=== PATIENT | male | born 1985 | race African-American/Black ===

== ENCOUNTER 2017-06-08 13:00 | Emergency (ER) | payer BC, OTHER ==
--- NOTE | 2017-06-08 15:48 | RAD ---
LEFT FOOT THREE VIEWS 06/08/17 INDICATION: Pain. FINDINGS: No fracture or dislocation. Lisfranc joint is maintained. There are enthesophytes of the calcaneus. M inimal osteoarthritis of the first ray are present. IMPRESSION: No acute osseous abnormality of the left foot. POS: MALIKA
[2017-06-08] MEDS ORDERED: Ketorolac Tromethamine 60 MG/2 ML VIAL ONE (16:12)
== END 2017-06-08 16:26 | disposition home or self-care (01) ==
LOC: ERS 13:00
DX: M72.2 Plantar fascial fibromatosis (principal); J45.909 Unspecified asthma, uncomplicated
CPT/HCPCS: J1885

== ENCOUNTER 2020-05-12 06:20 | Inpatient (IN) | payer OTHER, SELFPAY ==
[2020-05-12 07:19] LABS: #Basophils 0.1 thou/uL (0.0-0.2); #Eosinphils 0.3 thou/uL (0.0-0.7); #Monocytes 0.9 thou/uL (0.11-0.59); #Neutrophils 7.8 thou/uL (1.40-6.50); %Basophils 0.6 % (0.0-1.0); %Eosinophils 2.7 % (0.0-10.0); %Monocytes 7.8 % (0.0-10.0); Hemoglobin 13.5 g/dL (14.0-18.0); Mean Corpuscular HGB CONC 32.5 g/dL (32.0-36.0); Mean Corpuscular Volume 83.1 fL (78.0-98.0); Mean Platelet Volume 7.8 fL (7.4-10.4); Platelet Count 299 thou/uL (130-400); RBC Distribution Width 12.7 % (11.5-14.5); Red Blood Cell (RBC) Count 5.01 mill/uL (4.70-6.10)
--- NOTE | 2020-05-12 07:34 | RAD ---
Exam: Chest one view HISTORY:Dyspnea. Bilateral leg swelling Comparison: 03/04/2015 FINDINGS: Cardiac silhouette:Enlarged Aorta: Unremarkable Pulmonary vessels: Normal Costophrenic angles: Clear LUNGS: No masses or consolidation. Pneumothorax: None Osseous abnormalities: None IMPRESSION: No acute cardiopulmonary process.
[2020-05-12 07:51] LABS: ALT (SGPT) 29 U/L (8-55); AST (SGOT) 29 U/L (5-34); Albumin 3.9 g/dL (3.5-5.0); Alkaline Phosphatase 120 U/L (40-110); Anion Gap 11 mmol/L (10-20); BUN (Urea Nitrogen) 15 mg/dL (8.9-20.6); Bilirubin, Total 0.4 mg/dL (0.2-1.2); Calc. Creatinine Clearance 0 mL/min (70-130); Calcium 9.3 mg/dL (7.8-10.44); Carbon Dioxide 27 mmol/L (22-29); Chloride 105 mmol/L (98-107); Estimated GFR-MDRD Greater than 90; Globulin 3.6 g/dL (2.4-3.5); Glucose 93 mg/dL (70-105); Potassium 4.2 mmol/L (3.5-5.1); Protein, Total 7.5 g/dL (6.0-8.3); Sodium 139 mmol/L (136-145)
--- NOTE | 2020-05-12 08:16 | RAD ---
RADIOGRAPH LEFT LEG TIBIA-FIBULA 2VIEWS: DATE: 05/12/2020 HISTORY: 35-year-old male with left leg pain FINDINGS: There is no evidence of fracture, periostitis, permeative lesion, osteolytic lesion, or osteoblastic lesion. No radiopaque foreign body or subcutaneous emphysema is identified. There is diffuse subcutaneous edema. Mild DJD of knee. IMPRESSION: 1. Diffuse subcutaneous edema of the left leg. 2. No fracture of tibia or fibula
[2020-05-12] MEDS ORDERED: Morphine 4 MG/ML VIAL ONE (08:25)
[2020-05-12] MEDS ORDERED: Cefepime 2 GM VIAL ONE (08:25)
[2020-05-12] MEDS ORDERED: Vancomycin 1 GM/200 ML BAG ONE (08:25)
--- NOTE | 2020-05-12 09:17 | PDOC.HHP ---
Hospitalist HPI - History of Present Illness LE swelling History of Present Illness: PCP: Dr. 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 Patient reports gradual onset of swelling to his bilateral lower extremities over the past 2 weeks. He reports that he has had this before, however, it has not been "this bad". He reports over the last couple days that his left lower extremity below the knee has become more red, swollen and painful. The ER note reflected the patient had associated shortness of breath, however, I asked the patient about this statement and he said he did not have any shortness of breath. He reports that the pain is primarily to the front of his left lower extremity, below the knee, described as pressure, 7/10, and constant. 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 No history of DVT/PE. Denies SOB, cough, or wheezing. He denies any chest pain, heart palpitations, or light headedness. He has a history of asthma, that he says was due to VOG, which is common in [place] due to the v Swarms. He reports that since he has moved to the [facility] he has not had any symptoms or breathing difficulties. Denies fever or chills. He denies any known trauma or falls. Denies any puncture wounds. No history of IV drug use. He has not been in any salt water. Denies abdominal pain, nausea or vomiting. He also reports that he sees his PCP regularly, and is sure that he has no other comorbities such as diabetes, hypertension or high cholesterol.Tetanus is UTD. ED Course: VITAL SIGNS Rabia May 12, 2020 06:21 EDI Tellez, Corrie BP: 184/112, Pulse: 84, Resp: 20, Temp: 97.8 (Oral), Pain: 7, O2 sat: 95 on (Room Air), Time: 05/12/2020 06:21. VITAL SIGNS Rabia May 12, 2020 07:30 EDI Mary, Trisha BP: 114/96, MAP: 102, Pulse: 84, Resp: 20 (Non-Labored), Temp: 97.8 (Oral), Pain: 7, O2 sat: 96 on (Room Air), Time: 05/12/2020 07:30. Medication administration: vancomycin in dextrose 5 % one g IV Piggy Back Acknowledged 08:05/12/2020 cefepime injection 2 g IV Piggy Back Acknowledged 08:05/12/2020 morphine injection 4 mg IV Push Given 08:32 05/12/2020 sodium chloride 0.9 % intravenous 1 L IV Fluid Infusion Given 08:32 05/12/2020 Hospitalist ROS - Review of Systems Constitutional: denies: fever, chills Respiratory: denies: cough, shortness of breath, hemoptysis Cardiovascular: reports: edema. denies: chest pain, palpitations, light headedness Gastrointestinal: denies: nausea, vomiting, abdominal pain, diarrhea, constipation, melena, hematochezia Genitourinary: denies: dysuria, hematuria Skin: reports: rash Neurological: denies: weakness, change in speech, confusion All other systems reviewed; all pertinent +/- noted in HPI/Subj - Medication Medications: No home medications Allergies: NKDA Hospitalist History - Past Medical History Source: patient, RN notes reviewed Pulmonary: reports: asthma (Due to VOG when he lived in [place], no symptoms since moving to the [facility].) Other Medical History: Morbid obesity - Past Surgical History Past Surgical History: reports: Tonsillectomy - Family History Family History: denies: cardiac disorder Other Family History: Noncontributory for cardiac or PE/DVT - Social History Smoking Status: Never smoker Alcohol: reports: None Drugs: reports: none Living Situation: With Family Occupation: fire truck driver Activity level: independent ambulation - Exam General Appearance: NAD, awake alert. negative: ill appearing General - other findings: Morbid obesity Eye: anicteric sclera ENT: normocephalic atraumatic, moist mucosa Neck: supple, symmetric Heart: RRR, no murmur, no gallops, no rubs, normal peripheral pulses Respiratory: CTAB, no wheezes, no rales, no ronchi, normal chest expansion, no tachypnea Gastrointestinal: soft, non-tender, normal bowel sounds (Distant), no guarding, no rigidity Gastrointestinal - other findings: Negative Rovsing sign, negative Ken sign Extremities: negative: no edema (Left lower extremity swelling, erythema extending up to proximal tibia, no open lesions, warm to touch, TTP anterior tibia, nontender TP posteriorly, sensation intact, palpable posterior tibial pulse. ER MD Marked border of redness of extremity. Right lower extremity has swelling, no open lesions) Extremities - other findings: BLE Swelling Hospitalist Results - Labs Result Diagrams: 05/12/20 06:54 05/12/20 06:54 Lab results: WBC 11.0 thou/uL (4.8-10.8) H 05/12/20 06:54 Hgb 13.5 g/dL (14.0-18.0) L 05/12/20 06:54 Hct 41.7 % (42.0-52.0) L 05/12/20 06:54 MCV 83.1 fL (78.0-98.0) 05/12/20 06:54 Plt Count 299 thou/uL (130-400) 05/12/20 06:54 Neutrophils % 71.0 % (42.0-75.0) 05/12/20 06:54 ESR Westergren 24 mm/hr (Less than 15) H 05/12/20 08:39 Sodium 139 mmol/L (136-145) 05/12/20 06:54 Potassium 4.2 mmol/L (3.5-5.1) 05/12/20 06:54 Chloride 105 mmol/L (98-107) 05/12/20 06:54 Carbon Dioxide 27 mmol/L (22-29) 05/12/20 06:54 BUN 15 mg/dL (8.9-20.6) 05/12/20 06:54 Creatinine 1.03 mg/dL (0.7-1.3) 05/12/20 06:54 Glucose 93 mg/dL (70-105) 05/12/20 06:54 Calcium 9.3 mg/dL (7.8-10.44) 05/12/20 06:54 Total Bilirubin 0.4 mg/dL (0.2-1.2) 05/12/20 06:54 AST 29 U/L (5-34) 05/12/20 06:54 ALT 29 U/L (8-55) 05/12/20 06:54 Alkaline Phosphatase 120 U/L (40-110) H 05/12/20 06:54 Troponin I Less than 0.010 ng/mL (< 0.028) 05/12/20 06:54 B-Natriuretic Peptide 13.8 pg/mL (0-100) 05/12/20 06:54 Serum Total Protein 7.5 g/dL (6.0-8.3) 05/12/20 06:54 Albumin 3.9 g/dL (3.5-5.0) 05/12/20 06:54 - EKG Interpretation EKG: Normal sinus rhythm pulse 84 VA 154 no STEMI. - Radiology Interpretation Chest x-ray Status: report reviewed by me Additional Comment: IMPRESSION: No acute cardiopulmonary process. Other Status: report reviewed by me Additional Comment: RADIOGRAPH LEFT LEG TIBIA-FIBULA 2VIEWS: IMPRESSION: 1. Diffuse subcutaneous edema of the left leg. 2. 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 Admit to medical floor, inpatient status. Expected length of stay greater than 2 midnights. Presented hypertensive, NL HR, RR, SPO2, afebrile. EKG NSR. Troponin negative, BNP 13.8. CXR no acute process. WBC 11, LA 2.0, CRP 1.87, ESR 24 XR left leg no fracture, diffuse subcutaneous edema. Bilateral Venous ultrasound pending. Blood CX pending Tetanus is UTD per patient. #Cellulitis of left lower extremity LRINEC score 1, low risk Continue cefepime for now. Discontinue vancomycin, MRSA not suspected. Continue IV fluids x1 bag. Analgesia and antiemetics as needed. Repeat CRP and ESR q. 2 days. #Morbid obesity Chronic. Documented weight to 295 kg. Will check hemoglobin A1c. #History of asthma Resolved. Due to VOG from volcanoes when he lived in [place]. Lovenox for DVT prophylaxis. No GI prophylaxis. Full code. Discussed the case with Dr. Mead.
[2020-05-12] MEDS ORDERED: Ondansetron PF 4 MG/2 ML Vial IVP PRN (10:06)
[2020-05-12] MEDS ORDERED: HYDROcodone/Acetaminophen 5/325 mg Tablet PO PRN (10:06)
[2020-05-12] MEDS ORDERED: Senokot S 8.6-50 MG TAB PO PRN (10:06)
[2020-05-12] MEDS ORDERED: Ondansetron ODT 4 MG TAB PO PRN (10:06)
[2020-05-12] MEDS ORDERED: Sodium Chloride 0.9% 1,000 ML IV SCH (10:15)
[2020-05-12] MEDS ORDERED: Morphine 4 MG/ML VIAL SLOW IVP PRN (10:44)
--- NOTE | 2020-05-12 11:28 | ULT ---
EXAM: Bilateral lower extremity venous ultrasound HISTORY: Edema. COMPARISON: 09/06/2011 TECHNIQUE: Multiplanar grayscale and color Doppler images were obtained in a bilateral lower extremit y venous ultrasound. Spectral analysis of the Doppler waveforms were performed. FINDINGS: Limited evaluation due to body habitus The bilateral common femoral vein, profunda femoral veins, superficial femoral veins, and popliteal v eins are normal in appearance without visible thrombus. These vessels demonstrate normal compression, flow, and augmentation. The bilateral posterior tibial veins, profunda femoral veins and greater saphenous veins are patent w ithout evidence of DVT. IMPRESSION: No evidence of DVT in the left or right lower extremity.
[2020-05-12] MEDS: Acetaminophen 325 MG TAB PO PRN (15:53)
[2020-05-12 18:31] VITALS: BMI 81.1
[2020-05-12] MEDS: Enoxaparin Sodium 40 MG/0.4 ML SYRINGE SC SCH (21:04)
[2020-05-12] MEDS: HYDROcodone/Acetaminophen 5/325 mg Tablet PO PRN (21:04)
[2020-05-12] MEDS: Famotidine 20 MG TAB PO SCH (21:04)
[2020-05-12] MEDS: Cefepime 2 GM in Sodium Chloride 0.9% 100 ML IVPB SCH (21:05)
[2020-05-12 23:04] LABS: SARS-CoV-2 MS2 Positive; SARS-CoV-2 N Gene Negative; SARS-CoV-2 S Gene Negative; SARS-CoV-2 by NAA Not Detected (NotDetected); SARS-CoV-2 orf1ab Negative
[2020-05-13 03:52] LABS: Bacteria/HPF None Seen HPF (None Seen); Bilirubin Negative (Negative); Blood, Urine Negative (Negative); Clarity Clear (Clear); Glucose, Urine (Dipstick) Normal (Negative); Ketone, Urine Negative (Negative); Leukocyte Negative Leu/uL (Negative); Nitrite Negative (Negative); Protein, Urine (Dipstick) Negative (Neg-Trace); RBC/HPF 0-3 HPF (0-3); Specific Gravity, Urine 1.025 (1.002-1.036); Squamous Epithelial None Seen HPF (0-3); Urobilinogen Normal mg/dL (Less than 2); WBC/HPF 0-3 HPF (0-3); pH, Urine 5.5 (5.0-9.0)
[2020-05-13 05:25] LABS: #Eosinphils 0.3 thou/uL (0.0-0.7); #Lymphocytes 2.1 thou/uL (1.20-3.40); #Monocytes 0.9 thou/uL (0.11-0.59); #Neutrophils 5.8 thou/uL (1.40-6.50); %Basophils 0.5 % (0.0-1.0); %Eosinophils 3.1 % (0.0-10.0); %Lymphocytes 22.7 % (21.0-51.0); %Monocytes 9.9 % (0.0-10.0); %Neutrophils 63.8 % (42.0-75.0); Hemoglobin 13.2 g/dL (14.0-18.0); Mean Corpuscular HGB CONC 31.6 g/dL (32.0-36.0); Mean Corpuscular Hemoglobin 26.4 pg (27.0-31.0); Mean Corpuscular Volume 83.6 fL (78.0-98.0); Mean Platelet Volume 7.3 fL (7.4-10.4); Platelet Count 282 thou/uL (130-400); RBC Distribution Width 12.6 % (11.5-14.5); Red Blood Cell (RBC) Count 5.01 mill/uL (4.70-6.10)
[2020-05-13 05:30] LABS: Hemoglobin A1c 5.1 % (4.0-6.0)
[2020-05-13 05:41] LABS: Anion Gap 11 mmol/L (10-20); BUN (Urea Nitrogen) 14 mg/dL (8.9-20.6); Calc. Creatinine Clearance 498 mL/min (70-130); Calcium 9.1 mg/dL (7.8-10.44); Carbon Dioxide 27 mmol/L (22-29); Chloride 106 mmol/L (98-107); Estimated GFR-MDRD Greater than 90; Glucose 93 mg/dL (70-105); Potassium 4.5 mmol/L (3.5-5.1); Sodium 139 mmol/L (136-145)
--- NOTE | 2020-05-13 08:13 | PDOC.HOSPP ---
- Subjective Encounter Date: 05/13/20 Encounter Time: 08:02 Subjective: Patient seen and examined. No new complaints. No overnight events. Took shower last night and washed of black ink that marked border of erythema just below the knee of his LLE. Reports pain is improving to affected extremity. Denies any fever, chills, abdominal pain, N/V/D. Discussed risk factors for cellulitis. Patient had no more questions. - Objective Vital Signs & Weight: Vital Signs (12 hours) Temp Pulse Resp BP Pulse Ox 05/13/20 03:39 97 05/13/20 03:06 97.7 F 74 15 118/83 97 05/12/20 23:00 97.4 F L 84 16 102/61 96 Weight Weight 649 lb I&O: 05/12/20 05/13/20 05/14/20 06:59 06:59 06:59 Intake Total 1140 Balance 1140 Result Diagrams: 05/13/20 05:11 05/13/20 05:11 Hospitalist ROS - Review of Systems Constitutional: denies: fever, chills Respiratory: denies: cough, shortness of breath, hemoptysis Cardiovascular: denies: chest pain, palpitations, light headedness Gastrointestinal: denies: nausea, vomiting, abdominal pain, diarrhea Musculoskeletal: reports: leg pain (Left, pain improved, thinks redness is less) All other systems reviewed; all pertinent +/- noted in HPI/Subj - Medication Medications: Active Medications Generic Name Dose Route Start Last Admin Trade Name Freq PRN Reason Stop Dose Admin Acetaminophen 650 mg 05/12/20 10:06 05/12/20 15:53 Acetaminophen 325 Mg Tab PO 650 mg Q4H PRN Administration Headache/Fever/Mild Pain (1-3) Hydrocodone Bitart/Acetaminophen 2 tab 05/12/20 10:06 05/12/20 21:04 Hydrocodone/Acetaminophen 5/325 Mg Tablet PO 2 tab Q4H PRN Administration Severe Pain (7-10) Enoxaparin Sodium 40 mg 05/12/20 21:00 05/12/20 21:04 Enoxaparin Sodium 40 Mg/0.4 Ml Syringe SC 40 mg 0900,2100 CELESTE Administration Famotidine 20 mg 05/12/20 21:00 05/12/20 21:04 Famotidine 20 Mg Tab PO 20 mg BID CELESTE Administration Cefepime HCl 2 gm/ Sodium 100 mls @ 200 mls/hr 05/12/20 20:00 05/12/20 21:05 Chloride IVPB 100 mls 0800,1999 CELESTE Administration - Exam General Appearance: NAD, awake alert. negative: ill appearing General - other findings: morbid obese Eye: anicteric sclera Heart: RRR, no murmur, no gallops, no rubs Respiratory: CTAB, no wheezes, no rales, no ronchi, normal chest expansion, no tachypnea Gastrointestinal: soft, non-tender, normal bowel sounds, no guarding, no rigidity Extremities: negative: no edema (non pitting edema) Extremities - other findings: LLE erythema extend below knee, mod TTP throughout, doppler radial pulse Musculoskeletal: normal tone, normal strength Psychiatric: normal affect, A&O x 3 Hosp A/P (1) Cellulitis of left lower extremity Code(s): L03.116 - CELLULITIS OF LEFT LOWER LIMB Status: Acute (2) Morbid obesity Code(s): E66.01 - MORBID (SEVERE) OBESITY DUE TO EXCESS CALORIES Status: Chronic (3) History of asthma Code(s): Z87.09 - PERSONAL HISTORY OF OTHER DISEASES OF THE RESPIRATORY SYSTEM Status: Resolved - Plan 35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 Admit to medical floor, inpatient status. Expected length of stay greater than 2 midnights. Presented hypertensive, NL HR, RR, SPO2, afebrile. EKG NSR. Troponin negative, BNP 13.8. CXR no acute process. WBC 11, LA 2.0, CRP 1.87, ESR 24 XR left leg no fracture, diffuse subcutaneous edema. Bilateral Venous ultrasound negative. Blood CX pending Tetanus is UTD per patient. #Cellulitis of left lower extremity WBC down to 9.0 Stop cefepime, start ancef, no concern for pseudomonas. Tolerating po intake well. Analgesia and antiemetics prn. Check CRP/ESR q. 2 days. #Morbid obesity Chronic. Documented weight to 295 kg. HA1C 5.1 #History of asthma Resolved. Due to VOG from volcanoes when he lived in [place]. Lovenox for DVT prophylaxis. No GI prophylaxis. Full code. Discussed the case with Dr. Mead.
[2020-05-13] MEDS: Enoxaparin Sodium 40 MG/0.4 ML SYRINGE SC SCH ×2 (08:37→20:53)
[2020-05-13] MEDS: HYDROcodone/Acetaminophen 5/325 mg Tablet PO PRN (08:38)
[2020-05-13] MEDS: Famotidine 20 MG TAB PO SCH ×2 (08:38→20:53)
[2020-05-13] MEDS ORDERED: Enoxaparin Sodium 40 MG/0.4 ML SYRINGE SC SCH (09:00)
[2020-05-13] MEDS: Cefepime 2 GM in Sodium Chloride 0.9% 100 ML IVPB SCH (10:09)
[2020-05-13] MEDS ORDERED: CEFAZOLIN 1 GM in Sodium Chloride 0.9% 100 ML IVPB SCH (14:00)
[2020-05-13] MEDS: Acetaminophen 325 MG TAB PO PRN ×2 (14:26→20:55)
[2020-05-13] MEDS: ceFAZolin 1 GM/D5W 1 GM in Premix Bag 1 BAG IVPB SCH ×2 (16:52→20:53)
[2020-05-14] MEDS: Acetaminophen 325 MG TAB PO PRN ×3 (03:08→21:05)
[2020-05-14] MEDS: ceFAZolin 1 GM/D5W 1 GM in Premix Bag 1 BAG IVPB SCH ×3 (05:06→21:03)
[2020-05-14 06:36] LABS: #Basophils 0.1 thou/uL (0.0-0.2); #Eosinphils 0.3 thou/uL (0.0-0.7); #Lymphocytes 1.9 thou/uL (1.20-3.40); #Monocytes 0.7 thou/uL (0.11-0.59); #Neutrophils 6.7 thou/uL (1.40-6.50); %Basophils 0.8 % (0.0-1.0); %Eosinophils 3.2 % (0.0-10.0); %Lymphocytes 20.1 % (21.0-51.0); %Neutrophils 68.9 % (42.0-75.0); Hemoglobin 13.4 g/dL (14.0-18.0); Mean Corpuscular HGB CONC 32.6 g/dL (32.0-36.0); Mean Corpuscular Hemoglobin 27.7 pg (27.0-31.0); Mean Corpuscular Volume 84.9 fL (78.0-98.0); Mean Platelet Volume 7.9 fL (7.4-10.4); Platelet Count 299 thou/uL (130-400); RBC Distribution Width 12.5 % (11.5-14.5); Red Blood Cell (RBC) Count 4.86 mill/uL (4.70-6.10); White Blood Cell (WBC) Count 9.7 thou/uL (4.8-10.8)
[2020-05-14 06:44] LABS: Anion Gap 13 mmol/L (10-20); BUN (Urea Nitrogen) 13 mg/dL (8.9-20.6); Calc. Creatinine Clearance 492 mL/min (70-130); Calcium 9.1 mg/dL (7.8-10.44); Carbon Dioxide 25 mmol/L (22-29); Chloride 104 mmol/L (98-107); Estimated GFR-MDRD Greater than 90; Glucose 110 mg/dL (70-105); Potassium 4.3 mmol/L (3.5-5.1); Sodium 138 mmol/L (136-145)
--- NOTE | 2020-05-14 07:29 | PDOC.HOSPP ---
- Subjective Encounter Date: 05/14/20 Encounter Time: 08:31 Subjective: Patient seen and examined. No new complaints. No overnight events. Patient says he thinks redness is "going down" and pain is much improved. Denies fever or chills. Has no other complaints at this time. - Objective Vital Signs & Weight: Vital Signs (12 hours) Temp Pulse Resp BP Pulse Ox 05/14/20 04:00 97.7 F 78 18 126/83 97 05/14/20 00:00 96 05/13/20 23:42 98.7 F 75 18 143/56 H 96 05/13/20 20:00 98.5 F 83 16 148/82 H 97 Weight Weight 649 lb I&O: 05/13/20 05/14/20 05/15/20 06:59 06:59 06:59 Intake Total 1140 1270 Balance 1140 1270 Result Diagrams: 05/14/20 05:49 05/14/20 05:49 Hospitalist ROS - Review of Systems Constitutional: denies: fever, chills Respiratory: denies: cough, shortness of breath Cardiovascular: denies: chest pain, palpitations, light headedness Gastrointestinal: denies: nausea, vomiting, abdominal pain, diarrhea Skin: reports: rash (swelling and pain improved) All other systems reviewed; all pertinent +/- noted in HPI/Subj - Medication Medications: Active Medications Generic Name Dose Route Start Last Admin Trade Name Freq PRN Reason Stop Dose Admin Acetaminophen 650 mg 05/12/20 10:06 05/14/20 03:08 Acetaminophen 325 Mg Tab PO 650 mg Q4H PRN Administration Headache/Fever/Mild Pain (1-3) Hydrocodone Bitart/Acetaminophen 2 tab 05/12/20 10:06 05/13/20 08:38 Hydrocodone/Acetaminophen 5/325 Mg Tablet PO 2 tab Q4H PRN Administration Severe Pain (7-10) Enoxaparin Sodium 40 mg 05/12/20 21:00 05/13/20 20:53 Enoxaparin Sodium 40 Mg/0.4 Ml Syringe SC 40 mg 0900,2100 CELESTE Administration Famotidine 20 mg 05/12/20 21:00 05/13/20 20:53 Famotidine 20 Mg Tab PO 20 mg BID CELESTE Administration Cefazolin Sodium/Dextrose 1 gm 50 mls @ 100 mls/hr 05/13/20 14:00 05/14/20 05:06 / Device IVPB 50 mls Q8HR CELESTE Administration - Exam General Appearance: NAD, awake alert. negative: ill appearing Eye: anicteric sclera ENT: normocephalic atraumatic Neck: supple, symmetric Heart: RRR, no murmur, no gallops, no rubs Respiratory: CTAB, no wheezes, no rales, no ronchi Gastrointestinal: soft, non-tender, normal bowel sounds, no guarding, no rigidity Extremities - other findings: LLE erythema mid waterman, non pitting edema improving, mild TTP, palp PT pulse Neurological: no focal deficits Psychiatric: normal affect, A&O x 3 Hosp A/P (1) Cellulitis of left lower extremity Code(s): L03.116 - CELLULITIS OF LEFT LOWER LIMB Status: Acute (2) Morbid obesity Code(s): E66.01 - MORBID (SEVERE) OBESITY DUE TO EXCESS CALORIES Status: Chronic (3) History of asthma Code(s): Z87.09 - PERSONAL HISTORY OF OTHER DISEASES OF THE RESPIRATORY SYSTEM Status: Resolved - Plan 35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 Admit to medical floor, inpatient status. Expected length of stay greater than 2 midnights. Presented hypertensive, NL HR, RR, SPO2, afebrile. EKG NSR. Troponin negative, BNP 13.8. CXR no acute process. WBC 11, LA 2.0, CRP 1.87, ESR 24 XR left leg no fracture, diffuse subcutaneous edema. Bilateral Venous ultrasound negative. Blood CX pending Tetanus is UTD per patient. #Cellulitis of left lower extremity WBC WNL Continue Ancef Analgesia and antiemetics prn. Check CRP/ESR q. 2 days. #Morbid obesity Chronic. Documented weight to 295 kg. HA1C 5.1 #History of asthma Resolved. Due to VOG from volcanoes when he lived in [place]. Lovenox for DVT prophylaxis. No GI prophylaxis. Full code. Discussed the case with Dr. Mead.
[2020-05-14] MEDS: Famotidine 20 MG TAB PO SCH ×2 (09:15→21:03)
[2020-05-14] MEDS: Enoxaparin Sodium 40 MG/0.4 ML SYRINGE SC SCH ×2 (09:40→21:03)
[2020-05-15 05:44] LABS: #Eosinphils 0.3 thou/uL (0.0-0.7); #Lymphocytes 2.4 thou/uL (1.20-3.40); #Monocytes 0.8 thou/uL (0.11-0.59); #Neutrophils 6.3 thou/uL (1.40-6.50); %Basophils 0.1 % (0.0-1.0); %Eosinophils 3.4 % (0.0-10.0); %Monocytes 8.1 % (0.0-10.0); %Neutrophils 64.5 % (42.0-75.0); Hemoglobin 13.3 g/dL (14.0-18.0); Mean Corpuscular HGB CONC 31.6 g/dL (32.0-36.0); Mean Corpuscular Hemoglobin 26.5 pg (27.0-31.0); Mean Corpuscular Volume 83.8 fL (78.0-98.0); Mean Platelet Volume 7.3 fL (7.4-10.4); Platelet Count 307 thou/uL (130-400); RBC Distribution Width 12.6 % (11.5-14.5); Red Blood Cell (RBC) Count 5.01 mill/uL (4.70-6.10); White Blood Cell (WBC) Count 9.8 thou/uL (4.8-10.8)
[2020-05-15 06:12] LABS: Anion Gap 12 mmol/L (10-20); BUN (Urea Nitrogen) 13 mg/dL (8.9-20.6); Calc. Creatinine Clearance 476 mL/min (70-130); Calcium 9.1 mg/dL (7.8-10.44); Carbon Dioxide 26 mmol/L (22-29); Chloride 105 mmol/L (98-107); Estimated GFR-MDRD Greater than 90; Glucose 93 mg/dL (70-105); Potassium 4.4 mmol/L (3.5-5.1); Sodium 139 mmol/L (136-145)
[2020-05-15] MEDS: ceFAZolin 1 GM/D5W 1 GM in Premix Bag 1 BAG IVPB SCH ×3 (06:47→21:03)
[2020-05-15] MEDS: Acetaminophen 325 MG TAB PO PRN ×2 (08:31→21:04)
[2020-05-15] MEDS: Famotidine 20 MG TAB PO SCH ×2 (08:32→21:03)
[2020-05-15] MEDS: Enoxaparin Sodium 40 MG/0.4 ML SYRINGE SC SCH ×2 (08:32→21:03)
--- NOTE | 2020-05-15 13:27 | PDOC.HOSPP ---
- Subjective Encounter Date: 05/15/20 Encounter Time: 11:30 Subjective: leg pain and swelling has come down well per patient he is able to ambulate well on the floor now - Objective Vital Signs & Weight: Vital Signs (12 hours) Temp Pulse Resp BP Pulse Ox 05/15/20 11:15 97.9 F 92 18 132/83 98 05/15/20 07:22 97.8 F 76 18 127/84 98 Weight Weight 649 lb I&O: 05/14/20 05/15/20 05/16/20 06:59 06:59 06:59 Intake Total 1270 1190 Balance 1270 1190 Result Diagrams: 05/15/20 05:25 05/15/20 05:25 Hospitalist ROS - Medication Medications: Active Medications Generic Name Dose Route Start Last Admin Trade Name Freq PRN Reason Stop Dose Admin Acetaminophen 650 mg 05/12/20 10:06 05/15/20 08:31 Acetaminophen 325 Mg Tab PO 650 mg Q4H PRN Administration Headache/Fever/Mild Pain (1-3) Hydrocodone Bitart/Acetaminophen 2 tab 05/12/20 10:06 05/13/20 08:38 Hydrocodone/Acetaminophen 5/325 Mg Tablet PO 2 tab Q4H PRN Administration Severe Pain (7-10) Enoxaparin Sodium 40 mg 05/12/20 21:00 05/15/20 08:32 Enoxaparin Sodium 40 Mg/0.4 Ml Syringe SC 40 mg 0900,2100 CELESTE Administration Famotidine 20 mg 05/12/20 21:00 05/15/20 08:32 Famotidine 20 Mg Tab PO 20 mg BID CELESTE Administration Cefazolin Sodium/Dextrose 1 gm 50 mls @ 100 mls/hr 05/13/20 14:00 05/15/20 06:47 / Device IVPB 50 mls Q8HR CELESTE Administration - Exam General Appearance: awake alert Eye: PERRL, anicteric sclera ENT: no oropharyngeal lesions, moist mucosa Neck: supple, no JVD Heart: RRR, no murmur Respiratory: no wheezes, no rales Gastrointestinal: soft, non-tender, non-distended, normal bowel sounds Extremities: no cyanosis, no edema Neurological: cranial nerve grossly intact, no focal deficits Psychiatric: normal affect, A&O x 3 Hosp A/P (1) Cellulitis of left lower extremity Code(s): L03.116 - CELLULITIS OF LEFT LOWER LIMB Status: Acute (2) Morbid obesity Code(s): E66.01 - MORBID (SEVERE) OBESITY DUE TO EXCESS CALORIES Status: Chronic (3) History of asthma Code(s): Z87.09 - PERSONAL HISTORY OF OTHER DISEASES OF THE RESPIRATORY SYSTEM Status: Chronic - Plan is on ancef and has responded well plan is to switch him to keflex in am and dc home if he remains stable to ambulate as tolerated has life threatening obesity weighing nearly 649 lbs, needs to do drastic life style changes, ?bariatric surgery if he wishes.
[2020-05-16] MEDS: ceFAZolin 1 GM/D5W 1 GM in Premix Bag 1 BAG IVPB SCH ×2 (06:32→13:55)
[2020-05-16 08:57] LABS: #Basophils 0.1 thou/uL (0.0-0.2); #Eosinphils 0.3 thou/uL (0.0-0.7); #Lymphocytes 1.9 thou/uL (1.20-3.40); #Monocytes 0.7 thou/uL (0.11-0.59); #Neutrophils 6.9 thou/uL (1.40-6.50); %Basophils 0.7 % (0.0-1.0); %Eosinophils 2.6 % (0.0-10.0); %Monocytes 6.8 % (0.0-10.0); Hemoglobin 14.4 g/dL (14.0-18.0); Mean Corpuscular HGB CONC 32.5 g/dL (32.0-36.0); Mean Corpuscular Hemoglobin 27.2 pg (27.0-31.0); Mean Corpuscular Volume 83.8 fL (78.0-98.0); Mean Platelet Volume 7.8 fL (7.4-10.4); Platelet Count 319 thou/uL (130-400); RBC Distribution Width 12.8 % (11.5-14.5); Red Blood Cell (RBC) Count 5.29 mill/uL (4.70-6.10); White Blood Cell (WBC) Count 9.7 thou/uL (4.8-10.8)
[2020-05-16] MEDS: Famotidine 20 MG TAB PO SCH (09:08)
[2020-05-16] MEDS: Acetaminophen 325 MG TAB PO PRN (09:08)
[2020-05-16] MEDS: Enoxaparin Sodium 40 MG/0.4 ML SYRINGE SC SCH (09:10)
[2020-05-16 09:11] LABS: Anion Gap 14 mmol/L (10-20); BUN (Urea Nitrogen) 11 mg/dL (8.9-20.6); Calc. Creatinine Clearance 487 mL/min (70-130); Calcium 9.6 mg/dL (7.8-10.44); Carbon Dioxide 27 mmol/L (22-29); Chloride 104 mmol/L (98-107); Estimated GFR-MDRD Greater than 90; Glucose 96 mg/dL (70-105); Potassium 4.6 mmol/L (3.5-5.1); Sodium 140 mmol/L (136-145)
[2020-05-16 12:22] VITALS: BP 139/93; TEMP 98
--- NOTE | 2020-05-16 16:31 | DIS ---
DATE OF ADMISSION: 05/12/2020 DATE OF DISCHARGE: 05/16/2020 DISCHARGE DISPOSITION: Home. PRIMARY DISCHARGE DIAGNOSES: Left lower extremity cellulitis, morbid obesity, history of asthma. PROCEDURES DONE DURING HOSPITALIZATION: Left leg tibia fibula two view x-ray done showed diffuse subcutaneous edema of the left leg. No fracture of tibia or fibula. Bilateral lower extremity ultrasound done showed no DVT. Chest x-ray done showed no acute cardiopulmonary process. Blood cultures x2, no growth. White count of 9, H and H 14 and 44, platelet count 319. Sedimentation rate was 35. BUN 11, creatinine 0.9. CRP 1.87. COVID-19 PCR was not detected on 05/12/2020. DISCHARGE MEDICATIONS: 1. Keflex 500 mg p.o. q.6 hourly for a total of 10 days. 2. Omeprazole 20 mg p.o. daily for 15 days. ALLERGIES: NO KNOWN DRUG ALLERGIES. DISCHARGE PLAN: The patient to follow up with Dr. Herman Fleming, his primary care physician in 3 to 4 days. BRIEF COURSE DURING HOSPITALIZATION: The patient initially came to ER with complaints of left lower extremity swelling with pain. There was also erythema on clinical exam. He has had ultrasound venous Doppler done which did not reveal any DVT. He was placed on IV antibiotics and has responded well. He has been switched over to Keflex for a total duration of 10 days. He has been ambulating and eating well prior to discharge. The patient has a BMI of nearly 81 and weighing nearly 649 pounds. He has life-threatening obesity and has been counseled with regard to healthy eating and lifestyle choices with exercise as well. The patient also was counseled regarding bariatric surgery Please note, I have seen and examined the patient on the day of discharge. Job ID: [id number]
== END 2020-05-16 13:57 | disposition home or self-care (01) | DRG 603 ==
LOC: ERS 06:20 → ERHOLD 09:30 → SJJU 15:26
PROVIDERS: ADMIT Student in an Organized Health Care Education/Training Program; ATTEND Internal Medicine
DX: L03.116 Cellulitis of left lower limb (principal); Z68.45 Body mass index [BMI] 70 or greater, adult; E66.01 Morbid (severe) obesity due to excess calories; J45.909 Unspecified asthma, uncomplicated; Z20.828 Contact with and (suspected) exposure to other viral communicable diseases
CPT/HCPCS: 36415; 71045; 80048; 80053; 81001; 82550; 83036; 83605; 83880; 84484; 85025; 85652; 86140; 87040; 87635; 93005; 93970; 96365; 96367; 96375; J0690; J0692; J1650; J2270; J3370; J3490; U0003

== ENCOUNTER 2021-04-10 15:36 | Emergency (ER) | payer SELFPAY ==
[2021-04-10 16:13] LABS: Hemoglobin 13.3 g/dL (14.0-18.0); Mean Corpuscular HGB CONC 33.4 g/dL (32.0-36.0); Mean Corpuscular Hemoglobin 27.5 pg (27.0-31.0); Mean Corpuscular Volume 82.3 fL (78.0-98.0); Mean Platelet Volume 8.2 fL (7.4-10.4); Platelet Count 272 thou/uL (130-400); RBC Distribution Width 13.3 % (11.5-14.5); Red Blood Cell (RBC) Count 4.82 mill/uL (4.70-6.10); White Blood Cell (WBC) Count 16.5 thou/uL (4.8-10.8)
[2021-04-10 16:34] LABS: Band 18 % (5-11); Lymphocytes 8 % (21-51); MDiff Complete? YES; Monocytes 5 % (0-10); Neutrophil 67 % (42-75); Platelet Morphology Comment Appears Adequate; RBC Morphology Normal; Reactive Lymphocytes 2 % (0-10)
[2021-04-10 16:52] LABS: ALT (SGPT) 23 U/L (8-55); AST (SGOT) 30 U/L (5-34); Albumin 3.8 g/dL (3.5-5.0); Alkaline Phosphatase 93 U/L (40-110); Anion Gap 14 mmol/L (10-20); BUN (Urea Nitrogen) 12 mg/dL (8.9-20.6); Bilirubin, Total 0.8 mg/dL (0.2-1.2); Calc. Creatinine Clearance 0 mL/min (70-130); Calcium 9.4 mg/dL (7.8-10.44); Carbon Dioxide 22 mmol/L (22-29); Chloride 105 mmol/L (98-107); Globulin 3.7 g/dL (2.4-3.5); Glucose 102 mg/dL (70-105); Potassium 4.4 mmol/L (3.5-5.1); Protein, Total 7.5 g/dL (6.0-8.3); Sodium 137 mmol/L (136-145)
[2021-04-10 18:27] LABS: Bilirubin Negative (Negative); Blood, Urine Negative (Negative); Clarity Clear (Clear); Glucose, Urine (Dipstick) Normal (Negative); Ketone, Urine Negative (Negative); Leukocyte Negative Leu/uL (Negative); Nitrite Negative (Negative); Protein, Urine (Dipstick) Negative (Neg-Trace); Specific Gravity, Urine 1.008 (1.002-1.036); pH, Urine 6.5 (5.0-9.0)
[2021-04-10 18:59] LABS: Troponin I 0.017 ng/mL (< 0.028)
[2021-04-10 19:11] LABS: CK (CPK) 383 U/L (30-200); Lipase 7 U/L (8-78)
== END 2021-04-10 20:00 | disposition home or self-care (01) ==
LOC: ERS 15:36
DX: T78.1XXA Other adverse food reactions, not elsewhere classified, initial encounter (principal); D72.829 Elevated white blood cell count, unspecified
CPT/HCPCS: 36415; 80053; 81003; 82550; 83605; 83690; 83880; 84484; 85025; 85379; 87040; 93005

== ENCOUNTER 2021-06-26 17:59 | Inpatient (IN) | payer OTHER, SELFPAY ==
[2021-06-26 18:31] LABS: #Eosinphils 0.1 thou/uL (0.0-0.7); #Lymphocytes 1.1 thou/uL (1.20-3.40); #Monocytes 0.9 thou/uL (0.11-0.59); #Neutrophils 14.8 thou/uL (1.40-6.50); %Basophils 0.2 % (0.0-1.0); %Eosinophils 0.3 % (0.0-10.0); %Lymphocytes 6.5 % (21.0-51.0); %Monocytes 5.1 % (0.0-10.0); %Neutrophils 87.9 % (42.0-75.0); Hemoglobin 14.6 g/dL (14.0-18.0); Mean Corpuscular HGB CONC 34.2 g/dL (32.0-36.0); Mean Corpuscular Hemoglobin 27.5 pg (27.0-31.0); Mean Corpuscular Volume 80.5 fL (78.0-98.0); Mean Platelet Volume 7.4 fL (7.4-10.4); Platelet Count 266 thou/uL (130-400); RBC Distribution Width 13.1 % (11.5-14.5); Red Blood Cell (RBC) Count 5.31 mill/uL (4.70-6.10); White Blood Cell (WBC) Count 16.8 thou/uL (4.8-10.8)
[2021-06-26 18:43] LABS: PTT 29.8 sec (22.9-36.1); Prothrombin Time 13.3 sec (12.0-14.7)
[2021-06-26 18:54] LABS: ALT (SGPT) 21 U/L (8-55); AST (SGOT) 23 U/L (5-34); Alkaline Phosphatase 99 U/L (40-110); Anion Gap 12 mmol/L (10-20); BUN (Urea Nitrogen) 12 mg/dL (8.9-20.6); Bilirubin, Total 0.9 mg/dL (0.2-1.2); Calc. Creatinine Clearance 0 mL/min (70-130); Calcium 9.7 mg/dL (7.8-10.44); Carbon Dioxide 23 mmol/L (22-29); Chloride 107 mmol/L (98-107); Globulin 3.8 g/dL (2.4-3.5); Glucose 107 mg/dL (70-105); Potassium 3.7 mmol/L (3.5-5.1); Protein, Total 7.8 g/dL (6.0-8.3); Sodium 138 mmol/L (136-145)
[2021-06-26 20:08] LABS: SARS-CoV-2 NAA Rapid Test DETECTED (NotDetected)
[2021-06-26] MEDS ORDERED: Cefepime 2 GM VIAL ONE (21:07)
[2021-06-26] MEDS ORDERED: Vancomycin 1 GM/200 ML BAG ONE (21:07)
[2021-06-26 21:54] LABS: Bilirubin Negative (Negative); Blood, Urine Negative (Negative); Clarity Clear (Clear); Glucose, Urine (Dipstick) Normal (Negative); Ketone, Urine Negative (Negative); Leukocyte Negative Leu/uL (Negative); Nitrite Negative (Negative); Protein, Urine (Dipstick) 20 mg/dL (Neg-Trace); Specific Gravity, Urine 1.018 (1.002-1.036); Urobilinogen Normal mg/dL (Less than 2); pH, Urine 6.5 (5.0-9.0)
[2021-06-26] MEDS ORDERED: Enoxaparin Sodium 100 MG/ML SYRINGE ONE (22:04)
[2021-06-26] MEDS ORDERED: Enoxaparin Sodium 80 MG/0.8 ML SYRINGE ONE (22:04)
[2021-06-26 23:08] VITALS: BMI 78.6
[2021-06-27] MEDS ORDERED: Sodium Chloride 0.9% 1,000 ML IV SCH (03:45)
[2021-06-27] MEDS ORDERED: Ondansetron ODT 4 MG TAB SL PRN (03:45)
[2021-06-27] MEDS ORDERED: Ondansetron PF 4 MG/2 ML Vial IVP PRN ×2 (03:45→06:28)
[2021-06-27] MEDS ORDERED: Acetaminophen 325 MG TAB PO PRN ×2 (03:45→06:28)
[2021-06-27] MEDS: VANCOMYCIN 2 GRAM/400 ML BAG 2 GM in Premix Bag 1 BAG IVPB SCH ×3 (03:53→20:59)
[2021-06-27] MEDS ORDERED: Cefepime 2 GM in Sodium Chloride 0.9% 100 ML IVPB SCH (06:00)
[2021-06-27 06:53] LABS: #Lymphocytes 1.7 thou/uL (1.20-3.40); #Monocytes 1.1 thou/uL (0.11-0.59); %Basophils 0.1 % (0.0-1.0); %Eosinophils 0.2 % (0.0-10.0); %Lymphocytes 10.1 % (21.0-51.0); %Monocytes 6.6 % (0.0-10.0); Mean Corpuscular Hemoglobin 26.6 pg (27.0-31.0); Mean Corpuscular Volume 82.9 fL (78.0-98.0); Mean Platelet Volume 7.7 fL (7.4-10.4); Platelet Count 245 thou/uL (130-400); RBC Distribution Width 13.4 % (11.5-14.5); Red Blood Cell (RBC) Count 4.91 mill/uL (4.70-6.10); White Blood Cell (WBC) Count 16.8 thou/uL (4.8-10.8)
[2021-06-27 07:12] LABS: Anion Gap 10 mmol/L (10-20); BUN (Urea Nitrogen) 12 mg/dL (8.9-20.6); Calc. Creatinine Clearance 429 mL/min (70-130); Carbon Dioxide 23 mmol/L (22-29); Chloride 108 mmol/L (98-107); Glucose 109 mg/dL (70-105); Potassium 3.6 mmol/L (3.5-5.1); Sodium 137 mmol/L (136-145)
[2021-06-27] MEDS: Enoxaparin Sodium 40 MG/0.4 ML SYRINGE SC SCH (08:16)
[2021-06-28 03:50] LABS: #Basophils 0.1 thou/uL (0.0-0.2); #Eosinphils 0.2 thou/uL (0.0-0.7); #Lymphocytes 1.7 thou/uL (1.20-3.40); #Monocytes 1.1 thou/uL (0.11-0.59); #Neutrophils 9.8 thou/uL (1.40-6.50); %Basophils 0.5 % (0.0-1.0); %Eosinophils 1.5 % (0.0-10.0); %Lymphocytes 13.2 % (21.0-51.0); %Monocytes 8.6 % (0.0-10.0); %Neutrophils 76.3 % (42.0-75.0); Hemoglobin 12.9 g/dL (14.0-18.0); Mean Corpuscular HGB CONC 33.2 g/dL (32.0-36.0); Mean Corpuscular Hemoglobin 27.3 pg (27.0-31.0); Mean Corpuscular Volume 82.3 fL (78.0-98.0); Mean Platelet Volume 7.6 fL (7.4-10.4); Platelet Count 233 thou/uL (130-400); RBC Distribution Width 13.3 % (11.5-14.5); Red Blood Cell (RBC) Count 4.72 mill/uL (4.70-6.10); White Blood Cell (WBC) Count 12.8 thou/uL (4.8-10.8)
[2021-06-28 04:15] LABS: Anion Gap 11 mmol/L (10-20); BUN (Urea Nitrogen) 10 mg/dL (8.9-20.6); Calc. Creatinine Clearance 443 mL/min (70-130); Calcium 9.3 mg/dL (7.8-10.44); Carbon Dioxide 22 mmol/L (22-29); Chloride 110 mmol/L (98-107); Glucose 108 mg/dL (70-105); Potassium 3.7 mmol/L (3.5-5.1); Sodium 139 mmol/L (136-145); Vancomycin, Trough 17.9 ug/mL
[2021-06-28] MEDS: VANCOMYCIN 2 GRAM/400 ML BAG 2 GM in Premix Bag 1 BAG IVPB SCH ×3 (04:34→19:43)
[2021-06-28] MEDS: Enoxaparin Sodium 40 MG/0.4 ML SYRINGE SC SCH (09:38)
[2021-06-28] MEDS ORDERED: cefTRIAXone\\ROCEPHIN 2 GM in Sodium Chloride 0.9% 100 ML IVPB SCH (14:00)
[2021-06-29 05:11] LABS: #Basophils 0.1 thou/uL (0.0-0.2); #Eosinphils 0.4 thou/uL (0.0-0.7); #Lymphocytes 1.6 thou/uL (1.20-3.40); #Neutrophils 9.4 thou/uL (1.40-6.50); %Basophils 0.4 % (0.0-1.0); %Eosinophils 3.4 % (0.0-10.0); %Lymphocytes 13.1 % (21.0-51.0); %Monocytes 7.8 % (0.0-10.0); %Neutrophils 75.3 % (42.0-75.0); Hemoglobin 13.7 g/dL (14.0-18.0); Mean Corpuscular HGB CONC 32.8 g/dL (32.0-36.0); Mean Corpuscular Hemoglobin 27.2 pg (27.0-31.0); Mean Corpuscular Volume 82.7 fL (78.0-98.0); Mean Platelet Volume 7.9 fL (7.4-10.4); Platelet Count 263 thou/uL (130-400); RBC Distribution Width 13.1 % (11.5-14.5); Red Blood Cell (RBC) Count 5.05 mill/uL (4.70-6.10); White Blood Cell (WBC) Count 12.5 thou/uL (4.8-10.8)
[2021-06-29 05:31] LABS: Anion Gap 14 mmol/L (10-20); BUN (Urea Nitrogen) 9 mg/dL (8.9-20.6); Calc. Creatinine Clearance 490 mL/min (70-130); Calcium 9.6 mg/dL (7.8-10.44); Carbon Dioxide 21 mmol/L (22-29); Chloride 107 mmol/L (98-107); Glucose 97 mg/dL (70-105); Sodium 138 mmol/L (136-145)
[2021-06-29] MEDS: VANCOMYCIN 2 GRAM/400 ML BAG 2 GM in Premix Bag 1 BAG IVPB SCH (05:33)
[2021-06-29] MEDS ORDERED: Ondansetron ODT 4 MG TAB PO PRN (06:15)
[2021-06-29] MEDS ORDERED: Benzonatate 100 MG CAP PO PRN (06:15)
[2021-06-29] MEDS ORDERED: Loperamide HCl 2 MG CAP PO PRN (06:15)
[2021-06-29] MEDS ORDERED: Sodium Chloride 0.65% Nasal 44 ML BOT EA NARE PRN (06:15)
[2021-06-29] MEDS ORDERED: Loratadine 10 MG TAB PO PRN (06:15)
[2021-06-29] MEDS ORDERED: HYDROcodone/Acetaminophen 5/325 mg Tablet PO PRN (06:15)
[2021-06-29] MEDS ORDERED: Calcium Carbonate 500 MG ChewTAB PO PRN (06:15)
[2021-06-29] MEDS ORDERED: Senokot S 8.6-50 MG TAB PO PRN (06:15)
[2021-06-29] MEDS ORDERED: hydrALAZINE 20 MG/ML VIAL SLOW IVP PRN (06:15)
[2021-06-29] MEDS ORDERED: Zolpidem Tartrate 5 MG TAB PO PRN (06:15)
[2021-06-29] MEDS ORDERED: Cepastat Lozenges 1 LOZ PO PRN (06:15)
[2021-06-29] MEDS ORDERED: GUAIFENESIN SF SOLN 200 MG/10 ML UDCUP PO PRN (06:15)
[2021-06-29] MEDS: Enoxaparin Sodium 40 MG/0.4 ML SYRINGE SC SCH (08:21)
[2021-06-29 08:38] VITALS: BP 136/91; TEMP 97.7
[2021-06-29] MEDS ORDERED: Cholecalciferol 1,000 UNITS (25 MCG) TAB PO SCH (09:00)
[2021-06-29] MEDS ORDERED: Zinc Sulfate 220 MG CAP PO SCH (09:00)
[2021-06-29] MEDS ORDERED: Ascorbic Acid 500 mg Chewable Tablet PO SCH (09:00)
[2021-06-29] MEDS ORDERED: VANCOMYCIN 2 GRAM/400 ML BAG 2 GM in Premix Bag 1 BAG IVPB SCH (17:00)
== END 2021-06-29 12:18 | disposition home or self-care (01) | DRG 871 ==
LOC: ERS 17:59 → T4-A 21:02
PROVIDERS: ADMIT Internal Medicine; ATTEND Internal Medicine
PROC: 8E0ZXY6 Isolation (ICD-10-PCS; principal; 2021-06-26)
DX: A41.9 Sepsis, unspecified organism (principal); U07.1 COVID-19; Z68.45 Body mass index [BMI] 70 or greater, adult; L03.116 Cellulitis of left lower limb; E66.01 Morbid (severe) obesity due to excess calories; J45.909 Unspecified asthma, uncomplicated; Z90.89 Acquired absence of other organs
CPT/HCPCS: 0240U; 36415; 71045; 80048; 80053; 80202; 81003; 83605; 85025; 85610; 85652; 85730; 86140; 87040; 87086; 93005; 96365; 96368; J0692; J0696; J1650; J3370; J3490; J7050

== ENCOUNTER 2022-03-25 01:46 | Emergency (ER) | payer OTHER ==
[2022-03-25] MEDS ORDERED: Ketorolac Tromethamine 30 MG/ML VIAL ONE (03:44)
== END 2022-03-25 04:36 | disposition home or self-care (01) ==
LOC: ERS 01:46
DX: S93.602A Unspecified sprain of left foot, initial encounter (principal); M54.50 Low back pain, unspecified; E66.9 Obesity, unspecified; W17.89XA Other fall from one level to another, initial encounter; Z68.45 Body mass index [BMI] 70 or greater, adult
CPT/HCPCS: 72100; 96372; J1885

== ENCOUNTER 2022-10-27 23:44 | Emergency (ER) | payer BC, SELFPAY ==
[2022-10-28] MEDS ORDERED: Proparacaine 0.5% Opth 15 ML BOT ONE (00:45)
[2022-10-28] MEDS ORDERED: Fluorescein Opthalmic Strip ONE (00:46)
== END 2022-10-28 01:36 | disposition home or self-care (01) ==
LOC: ERS 23:44
DX: S05.02XA Injury of conjunctiva and corneal abrasion without foreign body, left eye, initial encounter (principal); E66.9 Obesity, unspecified; W26.9XXA Contact with unspecified sharp object(s), initial encounter
CPT/HCPCS: 99283

== ENCOUNTER 2023-04-11 15:45 | Observation (INO) | payer BC ==
[2023-04-11 17:23] LABS: #Eosinphils 0.3 thou/uL (0.0-0.7); #Neutrophils 8.7 thou/uL (1.40-6.50); %Basophils 0.3 % (0.0-1.0); %Eosinophils 2.5 % (0.0-10.0); %Lymphocytes 17.2 % (21.0-51.0); %Monocytes 7.9 % (0.0-10.0); %Neutrophils 71.6 % (42.0-75.0); Hematocrit 40.7 % (42.0-52.0); Hemoglobin 13.1 g/dL (14.0-18.0); Mean Corpuscular HGB CONC 32.2 g/dL (32.0-36.0); Mean Corpuscular Hemoglobin 26.8 pg (27.0-31.0); Mean Corpuscular Volume 83.2 fl (78.0-98.0); Mean Platelet Volume 10.2 fL (7.4-10.4); Platelet Count 336 10x3/uL (130-400); RBC Distribution Width 15.4 % (11.5-14.5); Red Blood Cell (RBC) Count 4.89 mill/uL (4.70-6.10); White Blood Cell (WBC) Count 12.2 10x3/uL (4.8-10.8)
[2023-04-11] MEDS ORDERED: cefTRIAXone (ROCEPHIN) 2 GM VIAL ONE ×2 (17:43→17:45)
[2023-04-11 17:48] LABS: ALT (SGPT) 30 U/L (8-55); AST (SGOT) 25 U/L (5-34); Albumin 4.5 g/dL (3.5-5.0); Alkaline Phosphatase 89 U/L (40-110); Anion Gap 15 mmol/L (10-20); BUN (Urea Nitrogen) 12 mg/dL (8.9-20.6); Bilirubin, Total 0.6 mg/dL (0.2-1.2); Calc. Creatinine Clearance 0 mL/min (70-130); Calcium 9.6 mg/dL (7.8-10.44); Carbon Dioxide 25 mmol/L (22-29); Chloride 107 mmol/L (98-107); Estimated GFR 111; Glucose 87 mg/dL (70-105); Potassium 3.8 mmol/L (3.5-5.1); Protein, Total 7.5 g/dL (6.0-8.3); Sodium 143 mmol/L (136-145)
[2023-04-11 17:52] LABS: Troponin I Less than 0.010 ng/mL (< 0.028)
[2023-04-11] MEDS ORDERED: Acetaminophen 325 MG TAB PO PRN (20:15)
[2023-04-11] MEDS ORDERED: Ondansetron PF 4 MG/2 ML Vial IVP PRN (20:15)
[2023-04-11 21:37] LABS: INR-International Normal Ratio 1.2; PTT 28.3 sec (22.9-36.1); Prothrombin Time 15.1 sec (12.0-14.7)
[2023-04-11 21:50] LABS: Troponin I Less than 0.010 ng/mL (< 0.028)
[2023-04-11 21:53] VITALS: BMI 78.0
[2023-04-11] MEDS ORDERED: Enoxaparin 120 MG/0.8 ML SYRINGE SC SCH (22:15)
[2023-04-11] MEDS: VANCOMYCIN 2 GRAM/500 ML BAG 2 GM in Premix Bag 1 BAG IVPB SCH (22:58)
[2023-04-12] MEDS: Heparin 25,000 units/D5W 500 ML IVPB SCH ×2 (00:01→10:08)
[2023-04-12] MEDS: VANCOMYCIN 2 GRAM/500 ML BAG 2 GM in Premix Bag 1 BAG IVPB SCH ×2 (05:58→13:12)
[2023-04-12 06:13] LABS: #Eosinphils 0.4 thou/uL (0.0-0.7); #Monocytes 0.7 thou/uL (0.11-0.59); #Neutrophils 7.1 thou/uL (1.40-6.50); %Basophils 0.4 % (0.0-1.0); %Lymphocytes 20.9 % (21.0-51.0); %Monocytes 6.7 % (0.0-10.0); %Neutrophils 67.6 % (42.0-75.0); Hematocrit 38.1 % (42.0-52.0); Hemoglobin 12.4 g/dL (14.0-18.0); Mean Corpuscular HGB CONC 32.5 g/dL (32.0-36.0); Mean Corpuscular Hemoglobin 26.8 pg (27.0-31.0); Mean Corpuscular Volume 82.3 fl (78.0-98.0); Mean Platelet Volume 10.1 fL (7.4-10.4); Platelet Count 298 10x3/uL (130-400); RBC Distribution Width 15.5 % (11.5-14.5); Red Blood Cell (RBC) Count 4.63 mill/uL (4.70-6.10); White Blood Cell (WBC) Count 10.5 10x3/uL (4.8-10.8)
[2023-04-12 06:41] LABS: Anion Gap 14 mmol/L (10-20); BUN (Urea Nitrogen) 11 mg/dL (8.9-20.6); Calc. Creatinine Clearance 506 mL/min (70-130); Calcium 9.1 mg/dL (7.8-10.44); Carbon Dioxide 24 mmol/L (22-29); Chloride 106 mmol/L (98-107); Estimated GFR 117; Glucose 103 mg/dL (70-105); Potassium 3.7 mmol/L (3.5-5.1); Sodium 140 mmol/L (136-145)
[2023-04-12 06:44] LABS: Troponin I Less than 0.010 ng/mL (< 0.028)
[2023-04-12] MEDS: Heparin 10,000 UNITS/ 10 ML VIAL SLOW IVP SCH ×2 (08:04)
[2023-04-12] MEDS ORDERED: Apixaban 5 MG TAB PO SCH (15:00)
[2023-04-12 16:12] VITALS: BP 138/86; TEMP 98.5
[2023-04-12] MEDS ORDERED: cefTRIAXone\\ROCEPHIN 2 GM in Sodium Chloride 0.9% 100 ML IVPB SCH (18:00)
[2023-04-14] MEDS ORDERED: FLU VACC QS2023-24(6MOS UP)/PF 60 MCG/0.5 ML SYRINGE IM ONE (09:00)
== END 2023-04-12 17:18 | disposition home or self-care (01) ==
LOC: ERS 15:45 → 2SW 19:29 → OBSVTOIN 04-12 14:28 → INTOOBSV 04-12 14:28
PROVIDERS: ADMIT Internal Medicine; ATTEND Internal Medicine
DX: R07.9 Chest pain, unspecified (principal); D64.9 Anemia, unspecified; E66.01 Morbid (severe) obesity due to excess calories; L03.115 Cellulitis of right lower limb; Z90.89 Acquired absence of other organs; Z68.45 Body mass index [BMI] 70 or greater, adult
CPT/HCPCS: 36415; 71045; 80048; 80053; 83880; 84484; 85025; 85379; 85610; 85730; 93005; 96365; 96375; 96376; G0378; J0696; J1644; J3370